=== PATIENT | female | born 1980 | race African-American/Black ===

== ENCOUNTER 2020-06-21 06:08 | Inpatient (IN) ==
[2020-06-16 13:20] LABS: Basophils % 0.6 % (0.0-0.8); Eosinophils # 0.1 10*3/uL (0.0-0.87); Hematocrit 38.5 VOL% (35.7-47.0); Hemoglobin 12.2 GM/DL (12.0-16.0); Immature Granulocytes % 0.2 %; Immature Granulocytes Absolute 0.01 #; Lymphocytes # 1.8 10*3/uL (1.4-4.0); Lymphocytes % 38.4 % (21.3-54.2); Mean Corpuscular HGB Conc 31.7 GM/DL (32-36); Mean Corpuscular Volume 82.6 FL (87-102); Mean Platelet Volume 9.6 FL (9.6-12.0); Neutrophils % 49.8 % (38.7-73.9); Platelet Count 308 T/CUMM (130-400); Red Blood Count 4.66 MC/CUMM (3.8-5.5); Red Cell Distribution Width 14.7 % (9.3-17.3); White Blood Count 4.8 T/CUMM (4-12)
[2020-06-16 13:36] LABS: Calcium 9.3 MG/DL (8.5-10.1)
[2020-06-21] MEDS ORDERED: GABAPENTIN 400 MG CAPSULE PO ONE (06:23)
[2020-06-21] MEDS ORDERED: DIAZEPAM 5 MG TABLET PO ONE (06:23)
[2020-06-21] MEDS ORDERED: BUPIVACAINE MPF 0.25% 30 ML VIAL ONE (06:24)
[2020-06-21] MEDS ORDERED: TISSUE ADHESIVE 1 EACH APPLICATOR TOP ONE (06:24)
[2020-06-21] MEDS ORDERED: LIDOCAINE 1%/EPI INJ 20 ML VIAL ONE (06:24)
[2020-06-21] MEDS ORDERED: BUPIVACAINE LIPOSOMAL 20 ML/266 MG VIAL ONE (06:24)
[2020-06-21] MEDS ORDERED: cefOXitin 3,000 MG in SYRINGE 1 EACH IV ONE (06:30)
[2020-06-21] MEDS ORDERED: PANTOPRAZOLE 40 MG VIAL IV ONE (06:30)
[2020-06-21] MEDS ORDERED: ACETAMINOPHEN INJ 1,000 MG in PREMIX 1 EACH IV ONE (06:30)
[2020-06-21] MEDS ORDERED: HEPARIN 5,000 UNIT/1 ML VIAL SUBCUT ONE (06:30)
[2020-06-21] MEDS ORDERED: SCOPOLAMINE 1.5 MG PATCH TRANSDERM ONE (06:30)
[2020-06-21] MEDS ORDERED: LACTATED RINGERS 1,000 ML IV SCH (06:30)
[2020-06-21] MEDS ORDERED: HYOSCYAMINE 0.125 MG TABLET SL ONE (06:30)
[2020-06-21] MEDS ORDERED: MEPERIDINE 25 MG/1 ML VIAL IV PRN (09:03)
[2020-06-21] MEDS ORDERED: diphenhydrAMINE 50 MG/1 ML VIAL IV PRN (09:03)
[2020-06-21] MEDS ORDERED: ONDANSETRON 4 MG/2 ML VIAL IV PRN (09:03)
[2020-06-21] MEDS ORDERED: PROMETHAZINE INJ 25 MG in SODIUM CHLORIDE 0.9% 50 ML IV PRN (09:03)
[2020-06-21] MEDS ORDERED: SEVOFLURANE 1 UNIT/15 MINUTE INH ONE (09:08)
[2020-06-21] MEDS ORDERED: propofoL 200 MG/20 ML VIAL IV ONE (09:08)
[2020-06-21] MEDS ORDERED: fentaNYL 250 MCG/5 ML VIAL ONE (09:08)
[2020-06-21] MEDS ORDERED: LIDOCAINE 2% 5 ML VIAL ONE (09:08)
[2020-06-21] MEDS ORDERED: ROCURONIUM 100 MG/10 ML VIAL IV ONE (09:09)
[2020-06-21] MEDS ORDERED: MIDAZOLAM 2 MG/2 ML VIAL ONE (09:09)
[2020-06-21] MEDS ORDERED: LACTATED RINGERS 1,000 ML IV ONE (09:09)
[2020-06-21] MEDS ORDERED: ONDANSETRON 4 MG/2 ML VIAL ONE (09:09)
[2020-06-21] MEDS ORDERED: NEOSTIGMINE 10 MG/10 ML VIAL ONE (09:09)
[2020-06-21] MEDS ORDERED: GLYCOPYRROLATE 0.4 MG/2 ML VIAL ONE (09:09)
[2020-06-21] MEDS: HYDROmorphone 2 MG/1 ML VIAL IV PRN ×4 (09:10→09:25)
[2020-06-21] MEDS ORDERED: PROMETHAZINE 25 MG/1 ML VIAL ONE (09:27)
[2020-06-21] MEDS ORDERED: HYDROcod/ACETAMIN 7.5-325 MG/15 ML UDCUP PO PRN (09:45)
[2020-06-21] MEDS ORDERED: hydrALAZINE 20 MG/1 ML VIAL IV PRN (09:45)
[2020-06-21] MEDS: LACTATED RINGERS 1,000 ML IV SCH ×2 (10:25→18:35)
[2020-06-21] MEDS: ONDANSETRON 4 MG/2 ML VIAL IV PRN ×2 (10:26→18:34)
[2020-06-21] MEDS: MORPHINE 4 MG/1 ML VIAL IV PRN (13:27)
[2020-06-21] MEDS: PROMETHAZINE 25 MG/1 ML VIAL IM PRN ×2 (13:42→19:59)
[2020-06-21] MEDS: ceFAZolin 2,000 MG in PREMIX 1 EACH IV SCH (15:16)
[2020-06-21] MEDS: SIMETHICONE CHEW 80 MG TABLET PO SCH (21:37)
[2020-06-22] MEDS: ONDANSETRON 4 MG/2 ML VIAL IV PRN ×2 (00:10→08:35)
[2020-06-22] MEDS: ceFAZolin 2,000 MG in PREMIX 1 EACH IV SCH (00:10)
[2020-06-22] MEDS: LACTATED RINGERS 1,000 ML IV SCH ×4 (01:20→23:35)
[2020-06-22] MEDS: PROMETHAZINE 25 MG/1 ML VIAL IM PRN (02:38)
[2020-06-22 05:23] LABS: Basophils % 0.1 % (0.0-0.8); Immature Granulocytes % 0.5 %; Immature Granulocytes Absolute 0.04 #; Lymphocytes # 1.2 10*3/uL (1.4-4.0); Lymphocytes % 13.8 % (21.3-54.2); Mean Corpuscular HGB Conc 32.4 GM/DL (32-36); Mean Platelet Volume 9.8 FL (9.6-12.0); Monocytes % 7.7 % (1.7-12.7); Neutrophils % 77.9 % (38.7-73.9); Platelet Count 278 T/CUMM (130-400); Red Blood Count 4.51 MC/CUMM (3.8-5.5); Red Cell Distribution Width 14.6 % (9.3-17.3); White Blood Count 8.3 T/CUMM (4-12)
[2020-06-22 05:40] LABS: Calcium 8.9 MG/DL (8.5-10.1); Osmolality,Calculated 270.8 MOS/KG (273-304)
[2020-06-22] MEDS: MORPHINE 4 MG/1 ML VIAL IV PRN (08:22)
[2020-06-22] MEDS: SIMETHICONE CHEW 80 MG TABLET PO SCH ×3 (08:23→20:37)
[2020-06-22] MEDS: PANTOPRAZOLE 40 MG VIAL IV SCH (08:23)
[2020-06-23] MEDS: LACTATED RINGERS 1,000 ML IV SCH ×2 (06:51→12:48)
[2020-06-23] MEDS ORDERED: ENOXAPARIN 40 MG/0.4 ML SYRINGE SUBCUT SCH (09:00)
[2020-06-23] MEDS: PANTOPRAZOLE 40 MG VIAL IV SCH (09:16)
[2020-06-23] MEDS: SIMETHICONE CHEW 80 MG TABLET PO SCH (09:16)
[2020-06-23 11:45] VITALS: BP 148/81
== END 2020-06-23 13:10 | disposition home or self-care (01) | DRG 621 ==
LOC: N.OR 06:08 → N.SDSINP 06:08 → EDSTATUS 07:30 → N.3E 09:45
PROVIDERS: ADMIT Surgery; ATTEND Surgery